=== PATIENT | female | born 1945 | race Caucasian/White ===

== ENCOUNTER → 2020-05-30 15:17 | Outpatient (CLI) | payer MEDICARE, OTHER | END | disposition home or self-care (01) | LOC: D.LAB 15:17 | PROVIDERS: ATTEND Internal Medicine Pulmonary Disease | DX: Z20.822 Contact with and (suspected) exposure to COVID-19 (principal) ==

== ENCOUNTER → 2020-06-05 11:01 | Outpatient (CLI) | payer MEDICARE, OTHER ==
[2020-06-06 09:14] LABS: ANA REFLEX - DIRECT Negative (Negative)
== END | disposition home or self-care (01) ==
LOC: D.RT 06-04 14:00 → D.LAB 06-04 14:45 → D.CT 06-04 15:00 → D.RT 11:00
PROVIDERS: ATTEND Internal Medicine Pulmonary Disease
DX: R06.09 Other forms of dyspnea (principal); R93.89 Abnormal findings on diagnostic imaging of other specified body structures

== ENCOUNTER → 2020-08-21 11:28 | Outpatient (CLI) | payer MEDICARE, OTHER | END | disposition home or self-care (01) | LOC: D.RAD 11:28 | PROVIDERS: ATTEND Nurse Practitioner Family | DX: J42 Unspecified chronic bronchitis (principal) ==